=== PATIENT | female | born 1965 | race Caucasian/White ===

== ENCOUNTER 2017-12-23 09:34 | Emergency (ER) | payer SELFPAY ==
[2017-12-23 09:39] VITALS: BMI 35.4
--- NOTE | 2017-12-23 10:29 | PDOC ---
History of Present Illness <Yajaira Tran - Last Filed: 12/23/17 11:32> - History of Present Illness Initial Comments: 12/23/17 10:28 "The patient is a 52 year old female, with no significant past medical history, who presents to the emergency department with right upper abdominal pain, constipation, decreased appetite, and subjective fever for 2 days. The patient reports her pain is constant a localized to her right upper quadrant. The patient also notes constipation and anorexia for 2 days. The patient states she has not eaten much since the onset of her symptoms as she becomes nauseous and vomits after eating. She reports subjective fever and chills. She states she has been taking Tylenol and Motrin for her pain, but denies taking anything since 12AM. She denies chest pain, shortness of breath, headache and dizziness. She denies diarrhea. She denies dysuria, frequency, urgency and hematuria. Allergies: NKDA Surgical Hx: tubal ligation " <Louie Ventura - Last Filed: 12/23/17 12:23> - General Chief Complaint: Pain Stated Complaint: ABD PAIN Time Seen by Provider: 12/23/17 09:53 Past History <Yajaira Tran - Last Filed: 12/23/17 11:32> - Past Medical History COPD: No - Suicide/Smoking/Psychosocial Hx Smoking History: Never smoked Hx Alcohol Use: No Drug/Substance Use Hx: No Substance Use Type: None <Louie Ventura - Last Filed: 12/23/17 12:23> - Past Medical History Allergies/Adverse Reactions: Allergies Allergy/AdvReac Type Severity Reaction Status Date / Time No Known Allergies Allergy Verified 12/23/17 09:36 Home Medications: Ambulatory Orders Esomeprazole Magnesium [Nexium 24Hr] 20 mg PO DAILY #30 capsule. 12/23/17 Review of Systems - Review of Systems Comments:: 12/23/17 10:30 """GENERAL/CONSTITUTIONAL: (+) subjective fever and chills. No weakness. HEAD, EYES, EARS, NOSE AND THROAT: No change in vision. No ear pain or discharge. No sore throat. CARDIOVASCULAR: No chest pain or shortness of breath. RESPIRATORY: No cough, wheezing, or hemoptysis. GASTROINTESTINAL: (+) RUQ pain, nausea, vomiting, constipation. No diarrhea or hematochezia. GENITOURINARY: No dysuria, frequency, or change in urination. MUSCULOSKELETAL: No joint or muscle swelling or pain. No neck or back pain. SKIN: No rash NEUROLOGIC: No headache, vertigo, loss of consciousness, or change in strength/ sensation. ENDOCRINE: No increased thirst. No abnormal weight change. HEMATOLOGIC/LYMPHATIC: No anemia, easy bleeding, or history of blood clots. ALLERGIC/IMMUNOLOGIC: No hives or skin allergy. """ <Louie Ventura - Last Filed: 12/23/17 12:23> *Physical Exam - Vital Signs Last Vital Signs Temp Pulse Resp BP Pulse Ox 98.5 F 88 18 117/61 100 12/23/17 09:35 12/23/17 09:35 12/23/17 09:35 12/23/17 09:35 12/23/17 09:35 <Yajaira Tran - Last Filed: 12/23/17 11:32> - Vital Signs Last Vital Signs Temp Pulse Resp BP Pulse Ox 98.5 F 88 18 117/61 100 12/23/17 09:35 12/23/17 09:35 12/23/17 09:35 12/23/17 09:35 12/23/17 09:35 - Physical Exam Comments: 12/23/17 10:31 "GENERAL: Awake, alert, and fully oriented, in no acute distress HEAD: No signs of trauma EYES: PERRLA, EOMI, sclera anicteric, conjunctiva clear ENT: Auricles normal inspection, hearing grossly normal, nares patent, oropharynx clear without exudates. Moist mucosa NECK: Nontender, no stepoffs, Normal ROM, supple, no lymphadenopathy, JVD, or masses LUNGS: Breath sounds equal, clear to auscultation bilaterally. No wheezes, and no crackles HEART: Regular rate and rhythm, normal S1 and S2, no murmurs, rubs or gallops ABDOMEN: soft, nondistended, + RUQ tenderness. No guarding, no rebound. No masses EXTREMITIES: Normal range of motion, no edema. No clubbing or cyanosis. No cords, erythema, or tenderness NEUROLOGICAL: Cranial nerves II through XII intact. 5/5 strength and sensation in all extremities, Normal speech, normal gait SKIN: Warm, Dry, normal turgor, no rashes or lesions noted. " <Louie Ventura - Last Filed: 12/23/17 12:23> ED Treatment Course - LABORATORY CBC & Chemistry Diagram: 12/23/17 10:40 12/23/17 10:40 - ADDITIONAL ORDERS Additional order review: Laboratory Results 12/23/17 12/23/17 12/23/17 11:00 10:59 10:40 PT with INR 11.60 INR 1.03 PTT (Actin FS) 32.6 Urine Color Colorless Urine Appearance Clear Urine pH 7.0 Ur Specific [place] 1.004 Urine Protein Negative Urine Glucose (UA) Negative Urine Ketones Negative Urine Blood Negative Urine Nitrite Negative Urine Bilirubin Negative Urine Urobilinogen Negative Ur Leukocyte Esterase Negative Blood Type Cancelled Antibody Screen Cancelled 12/23/17 10:40 RBC 4.24 MCV 94.5 MCHC 32.7 RDW 12.8 MPV 7.6 Neutrophils % 40.2 L Lymphocytes % 48.8 H Monocytes % 8.0 Eosinophils % 2.3 Basophils % 0.7 - RADIOLOGY Radiograph Interpretation: EXAM#: TYPE/EXAM: RESULT: [id number] RAD/CHEST PA LAT Chest: Right upper quadrant pain 2 views reveal clear lungs, normal mediastinum and sharp angles. The bones and soft tissues are intact. Impression: No acute pathology. No comparison studies. Reported By: Judson Perez MD 12/23/17 1110 <Yajaira Tran - Last Filed: 12/23/17 11:32> - LABORATORY CBC & Chemistry Diagram: 12/23/17 10:40 12/23/17 10:40 - RADIOLOGY Radiology Studies Ordered: Category Date Time Status CHEST PA & LAT [RAD] Stat Radiology 12/23/17 10:22 Ordered ABDOMEN US [US] Stat Ultrasound 12/23/17 10:22 Ordered <Louie Ventura - Last Filed: 12/23/17 12:23> Medical Decision Making - Medical Decision Making 12/23/17 10:23 52 F with RUQ abdominal pain. Possible biliary colic vs pancreatitis. Also consider RLL PNA, though pt with no cough/SOB/chest pain. Anginal equivalent is unlikely as well, but will r/o with single trop and EKG. - Labs, lipase - EKG - RUQ sono 12/23/17 12:18 Labs wnl US with no gallstones, no cholecystitis CXR normal Pt reassessed - reports persistent mild pain but able to tolerate PO in ER. Possible gastritis vs PUD. Pt well appearing with normal vitals, clinically stable for DC. Will give GI f/ u. I discussed the physical exam findings, ancillary test results and final diagnoses with the patient. I answered all of the patient's questions. The patient was satisfied with the care received and felt comfortable with the discharge plan and treatment plan. The patient agrees to follow up with the primary care physician within 24-72 hours. <Louie Ventura - Last Filed: 12/23/17 12:23> *DC/Admit/Observation/Transfer <ChelseaYajaira - Last Filed: 12/23/17 11:32> - Attestations Physician Attestion: 12/23/17 12:23 I, Dr. Louie Ventura MD, attest that this document has been prepared under my direction and personally reviewed by me in its entirety. I further attest, that it accurately reflects all work, treatment, procedures and medical decision -making performed by me. <Louie Ventura - Last Filed: 12/23/17 12:23> Diagnosis at time of Disposition: Abdominal pain - Discharge Dispostion Disposition: HOME - Referrals Referrals: Owen Gutierrez MD [Staff Physician] - - Patient Instructions Printed Discharge Instructions: DI for Gastritis Additional Instructions: Your ultrasound was normal today. Your abdominal pain may be due to gastritis or stomach ulcers. You must follow up with a GI doctor to have your abdominal pain further evaluated. Call the number provided to make an appointment as soon as possible. Take the nexium as prescribed. If you experience worsening pain, vomiting, fevers, or any other concerning symptoms, return to the ER immediately. Otherwise, see your primary doctor within 1 week.
[2017-12-23 10:54] LABS: BASO % 0.7 % (0-2.0); EOS % 2.3 % (0-4.5); HEMOGLOBIN 13.1 GM/dL (10.7-15.3); LYMPH % 48.8 % (8-40); MCH 30.9 pg (25.7-33.7); MCHC 32.7 g/dl (32.0-36.0); MEAN CELL VOLUME 94.5 fl (80-96); MEAN PLT VOLUME 7.6 fl (7.5-11.1); NEUT % 40.2 % (42.8-82.8); PLATELET COUNT 284 K/MM3 (134-434); RBC 4.24 M/mm3 (3.60-5.2); RDW 12.8 % (11.6-15.6); WHITE BLOOD COUNT 4.5 K/mm3 (4.0-10.0)
[2017-12-23 11:16] LABS: URINE APPEARANCE CLEAR; URINE BILIRUBIN NEGATIVE (NEGATIVE); URINE BLOOD NEGATIVE (NEGATIVE); URINE COLOR COLORLESS; URINE GLUCOSE (UA) NEGATIVE (NEGATIVE); URINE KETONE NEGATIVE (NEGATIVE); URINE LEUK ESTERASE NEGATIVE (NEGATIVE); URINE NITRITE NEGATIVE (NEGATIVE); URINE PROTEIN NEGATIVE (NEGATIVE); URINE UROBILINOGEN NEGATIVE mg/dL (0.2-1.0)
[2017-12-23 11:17] LABS: INR 1.03 (0.82-1.09); PROTHROMBIN TIME (PATIENT) 11.6 SEC (9.98-11.88)
[2017-12-23 11:20] LABS: ACTIVATED PTT 32.6 SECONDS (26.9-34.4)
[2017-12-23 11:32] LABS: ALBUMIN 3.4 g/dl (3.4-5.0); ANION GAP 6 (8-16); BILIRUBIN,TOTAL 0.2 mg/dL (0.2-1.0); BLOOD UREA NITROGEN 11 mg/dL (7-18); CHLORIDE 104 mmol/L (98-107); CO2 30 mmol/L (21-32); CREATININE 0.5 mg/dL (0.55-1.02); GLUCOSE,RANDOM 96 mg/dL (74-106); LIPASE 136 U/L (73-393); POTASSIUM 4.2 mmol/L (3.5-5.1); SODIUM 140 mmol/L (136-145); TOT PROT 7.4 g/dl (6.4-8.2)
[2017-12-23 11:51] LABS: ALK PHOS 135 U/L (45-117); SGPT/ALT 46 U/L (12-78)
[2017-12-23 11:53] LABS: SGOT/AST 27 U/L (15-37)
[2017-12-23 12:41] VITALS: BP 127/89; PULSE 84; TEMP 98.1
--- NOTE | 2017-12-23 12:43 | EKG ---
Test Reason : Blood Pressure : / mmHG Vent. Rate : 075 BPM Atrial Rate : 075 BPM P-R Int : 148 ms QRS Dur : 084 ms QT Int : 384 ms P-R-T Axes : 049 022 021 degrees QTc Int : 428 ms NORMAL SINUS RHYTHM NORMAL ECG NO PREVIOUS ECGS AVAILABLE Confirmed by JAMILAH LAUREN MD ([id number]) on 12/23/2017 12:43:12 PM Referred By: Confirmed By:JAMILAH LAUREN MD
== END 2017-12-23 12:50 | disposition home or self-care (01) ==
LOC: JER 09:34
DX: K29.70 Gastritis, unspecified, without bleeding (principal)
CPT/HCPCS: 36415; 71046-TC; 76705-TC; 80053; 81003; 82550; 83690; 84484; 85025; 85610; 85730; 93005; 93010; 99283-25

== ENCOUNTER 2017-12-26 20:02 | Emergency (ER) | payer SELFPAY ==
[2017-12-26 20:12] VITALS: BP 122/61; PULSE 100; BMI 35.4
--- NOTE | 2017-12-26 20:33 | PDOC ---
History of Present Illness - General Chief Complaint: Cold Symptoms Stated Complaint: COLD SYMPTOMS Time Seen by Provider: 12/26/17 20:30 History Source: Patient Exam Limitations: No Limitations - History of Present Illness Initial Comments: 12/26/17 21:14 Patient is a 52 y/o F with PMH of arthritis, gastritis who presents to the ED with two days of fever, chills, body aches, nausea, sore throat and ear pain. She has been taking ibuprofen with little relief. Taking low doses of ibuprofen d.t her gastritis. She did not get the flu shot this year. Denies shortness of breath, difficulty breathing, vomiting, diarrhea. Vital signs notable for fever of 102.1F Past History - Travel Traveled outside of the country in the last 30 days: No Close contact w/someone who was outside of country & ill: No - Past Medical History Allergies/Adverse Reactions: Allergies Allergy/AdvReac Type Severity Reaction Status Date / Time No Known Allergies Allergy Verified 12/26/17 20:12 Home Medications: Ambulatory Orders Acetaminophen [Tylenol Extra Strength] 500 mg PO Q4H #30 tablet 12/26/17 Oseltamivir Phosphate [Tamiflu] 75 mg PO BID #10 capsule 12/26/17 COPD: No - Suicide/Smoking/Psychosocial Hx Smoking History: Never smoked Have you smoked in the past 12 months: No Information on smoking cessation initiated: No Hx Alcohol Use: No Drug/Substance Use Hx: No Substance Use Type: None Review of Systems - Review of Systems Able to Perform ROS?: No Comments:: 12/26/17 21:16 CONSTITUTIONAL: Present: fever, chills, malaise Absent: diaphoresis, generalized weakness, loss of appetite HEENT: Present: rhinorrhea, nasal congestion, throat pain Absent: throat swelling, difficulty swallowing, mouth swelling, ear pain, eye pain, visual Changes CARDIOVASCULAR: Absent: chest pain, loss of consciousness, palpitations, irregular heart rate, peripheral edema RESPIRATORY: Present: dry cough Absent: shortness of breath, dyspnea with exertion, orthopnea , wheezing, stridor, hemoptysis GASTROINTESTINAL: Absent: abdominal pain, abdominal distension, nausea, vomiting, diarrhea, constipation, melena, hematochezia GENITOURINARY: Absent: dysuria, frequency, urgency, hesitancy, hematuria, flank pain, genital pain MUSCULOSKELETAL: Absent: myalgia, arthralgia, joint swelling SKIN: Absent: rash, itching, pallor HEMATOLOGIC/IMMUNOLOGIC: Absent: easy bleeding, easy bruising, lymphadenopathy, frequent infections ENDOCRINE: Absent: unexplained weight gain, unexplained weight loss, heat intolerance, cold intolerance NEUROLOGIC: Absent: headache, focal weakness or paresthesias, dizziness, unsteady gait, seizure, mental status changes, bladder or bowel incontinence PSYCHIATRIC: Absent: anxiety, depression, suicidal or homicidal ideation, hallucinations. Is the patient limited [place]ian proficient: No *Physical Exam - Vital Signs Last Vital Signs Temp Pulse Resp BP Pulse Ox 102.1 F H 100 H 16 122/61 100 12/26/17 20:10 12/26/17 20:10 12/26/17 20:10 12/26/17 20:10 12/26/17 20:10 - Physical Exam Comments: 12/26/17 22:00 GENERAL: Well developed, well nourished. Awake and alert x3. No acute distress. HEENT: Normocephalic, atraumatic. PERRLA, EOMI. No conjunctival pallor. Sclera are non- icteric. Moist mucous membranes. Oropharynx with mild posterior erythema. NECK: Supple. Full ROM. No JVD. Carotid pulses 2+ and symmetric, without bruits. No thyromegaly. No lymphadenopathy. CARDIOVASCULAR: Regular rate and rhythm. No murmurs, rubs, or gallops. Distal pulses are 2+ and symmetric. PULMONARY: No evidence of respiratory distress. Lungs clear to auscultation bilaterally. No wheezing, rales or rhonchi. ABDOMINAL: Soft. Non-tender. Non-distended. No rebound or guarding. No organomegaly. Normoactive bowel sounds. MUSCULOSKELETAL Normal range of motion at all joints. No bony deformities or tenderness. No CVA tenderness. EXTREMITIES: No cyanosis. No clubbing. No edema. No calf tenderness. SKIN: Warm and dry. Normal capillary refill. No rashes. No jaundice. NEUROLOGICAL: Alert, awake, appropriate. Cranial nerves 2-12 intact. No deficits to light touch and temperature in face, upper extremities and lower extremities. No motor deficits in the in face, upper extremities and lower extremities. Normoreflexic in the upper and lower extremities. Normal speech. Toes are down- going bilaterally. Gait is normal without ataxia. PSYCHIATRIC: Cooperative. Good eye contact. Appropriate mood and affect. Medical Decision Making - Medical Decision Making 12/26/17 20:28 Pt. is a 52 y/o F with PMH gastritis, arthritis, who presents to the ED with two days of flu like symptoms. Rapid flu test obtained. Will give tylenol and toradol at this time for symptoms/fever of 102. Will most likely treat with tamiflu regardless of flu test given severity of symptoms. 12/26/17 21:56 Flu negative, however given severity of symptoms, will empirically treat for flu /prophylaxisis at this time since patient is in treatment period *DC/Admit/Observation/Transfer Diagnosis at time of Disposition: Upper respiratory infection Qualifiers: URI type: unspecified viral URI Qualified Code(s): J06.9 - Acute upper respiratory infection, unspecified - Discharge Dispostion Disposition: HOME Condition at time of disposition: Good Admit: No - Prescriptions Prescriptions: Acetaminophen [Tylenol Extra Strength] 500 mg PO Q4H #30 tablet Oseltamivir Phosphate [Tamiflu] 75 mg PO BID #10 capsule - Referrals Referrals: Pa Hernandez MD [Staff Physician] - - Patient Instructions Printed Discharge Instructions: DI for Viral Upper Respiratory Infection -- Adult Additional Instructions: Her flu swab was negative today, however given all of your symptoms you're being prophylactically treated for the flu. Please take the Tamiflu twice a day for 5 days to help with her symptoms. Take the Tylenol as prescribed to help with headaches and body aches. Please get plenty of rest and drink plenty of fluids. Cool baths may help with the fevers as well. Please follow up with her primary care doctor later this week. Return to the emergency department if you have difficulty breathing, shortness of breath, or any changes in her symptoms. [place] hisopo de gripe fue negativo en la actualidad; sin embargo, dado todos noemi s ntomas, se lo est tratando profilcticamente para la gripe. [place] el Tamiflu dos veces al da peg 5 coyle para ayudarla con noemi sntomas. [place] Tylenol seg n lo recetado para ayudar con los mela de jadon y del cuerpo. Descanse lo suficiente y tome muchos lquidos. Los baos fros tambin pueden ayudar con la fiebre. Por favor, natalie un seguimiento con whiting mdico de atencin primaria ms adelante esta semana. Regrese al departamento de emergencias si tiene dificultad para respirar, dificultad para respirar o cualquier cambio en noemi sntomas. - Post Discharge Activity Forms/Work/School Notes: Back to Work
[2017-12-26] MEDS ORDERED: ACETAMINOPHEN 325 MG TABLET (FP) PO ONE (20:35)
[2017-12-26] MEDS ORDERED: ACETAMINOPHEN 325 MG TABLET (FP) ONE (20:38)
[2017-12-26] MEDS ORDERED: KETOROLAC TROMETHAMINE 30 MG/1 ML VIAL IM ONE (20:45)
[2017-12-26] MEDS ORDERED: KETOROLAC TROMETHAMINE 30 MG/1 ML VIAL ONE (20:50)
[2017-12-26 21:50] VITALS: TEMP 100.2
== END 2017-12-26 22:07 | disposition home or self-care (01) ==
LOC: JERFT 20:02
PROC: 3E0233Z Introduction of Anti-inflammatory into Muscle, Percutaneous Approach (ICD-10-PCS; principal; 2017-12-26)
DX: J06.9 Acute upper respiratory infection, unspecified (principal)
CPT/HCPCS: 87804; 99281-25